=== PATIENT | male | born 1940 | race Caucasian/White ===

== ENCOUNTER → 2016-08-19 | Outpatient (CLI) | payer OTHER ==
[~2016-08-19] MED LIST: TOPR25TA2 PO
--- NOTE | 2016-08-20 08:55 | RSPPFT ---
DATE OF PROCEDURE: 08/19/16 COMMENTS: Spirometry shows FVC of 3.2 at 65% of predicted, FEV1 of 2.2 at 67%, FEV1/FVC ratio is decreased. Flow is decreased at FEF 25, FEF 50, FEF 75 and FEF 25-75. There is a paradoxical response to acutely inhaled bronchodilator treatment. Lung volumes show residual volume is increased. TLC is normal. Diffusion capacity is decreased. Flow volume loop indicates an obstructive pattern. IMPRESSION: 1. Mild obstructive lung disease. 2. Paradoxical response to bronchodilator treatment. 3. Lung volumes show hyperinflation. 4. Mildly decreased diffusion capacity.
== END ==
LOC: HRSP 10:19
PROVIDERS: ATTEND Specialist
DX: J44.9 Chronic obstructive pulmonary disease, unspecified (principal)
CPT/HCPCS: 94060; 94726; 94729